=== PATIENT | female | born 2000 | race Caucasian/White ===

== ENCOUNTER 2023-06-05 11:37 | Emergency (ER) | payer BC, SELFPAY ==
[2023-06-05 11:38] VITALS: BP 109/71; PULSE 80; RESP 14; TEMP 36.2; O2SAT 100; BMI 30.9
--- NOTE | 2023-06-05 12:14 | EDS_ITS ---
HPI History of Present Illness Chief Complaint: Bite Narrative Narrative: 22-year-old female with bat exposure this morning. She denies any bites. Her significant other [facility] and they were told that they have a bat exposure and there is concern for rabies. She presents for vaccination. PFSH PFSH Allergy/AdvReac Type Severity Reaction Status Date / Time Sulfa (Sulfonamide Allergy Mild RASH Verified 06/05/23 11:39 Antibiotics) Social History Smoking Status: Never smoker ROS ROS ED Constitutional Constitutional ED: Denies chills, fever(s) or sweats Eyes Eyes: Denies blurry vision or change in vision ENT ENT ED: Denies ear pain or sore throat Cardiovascular Cardiovascular: Denies chest pain, palpitations or racing heartbeat Respiratory/Chest Respiratory/Chest: Denies cough, dyspnea or sputum Gastrointestinal Gastrointestinal: Denies abdominal pain, constipation, diarrhea, nausea or vomiting Genitourinary Genitourinary ED: Denies dysuria, hematuria or urinary frequency Musculoskeletal Musculoskeletal: Denies arthralgias, myalgias or neck pain Integumentary Denies abscess, Abrasions or rash Neurologic Neurologic: Denies headache(s), paresthesias or weakness Psychiatric Psychiatric: Denies anxiety, depression, suicidal ideation or suicidal thoughts Endocrine Endocrinology: Denies polydipsia or polyuria EXAM Physical Exam Const Vital Signs: 06/05/23 11:38 Temperature 97.1 F L Temperature Source Temporal Pulse Rate 80 Respiratory Rate 14 Blood Pressure 109/71 Blood Pressure Mean 83 Pulse Ox 100 Oxygen Delivery Method Room Air Positive well nourished General Appearance ED: NAD HEENT Reports moist mucous membranes Eyes PERRL and EOMs intact bilaterally Resp normal respiratory effort Effort and Inspection: Negative for retractions Cardio regular rate and regular rhythm Neuro oriented x3 and CN's II-XII intact bilaterally Psych mental status grossly normal Skin no rashes or lesions noted and no wounds MDM MDM MDM Narrative Medical decision making narrative: 22-year-old otherwise healthy female with bat exposure. There is concern for rabies. No reported bites or scratches. She is given rabies vaccine and immunoglobulin. She given scheduled for rabies vaccination. Return precautions discussed. Impression: 1. Bat exposure 2. Rabies vaccination Discharge Plan Triage Chief Complaint: Bite ED Provider: Aleksandar Rock Dx/Rx/DC Orders Instructions: Understanding Rabies Disposition Disposition: Home, Self Care
[2023-06-05] MEDS: Rabies Vaccine,Human Diploid 2.5 UNITS Vial IM (13:13)
[2023-06-05] MEDS: Rabies Immune Globulin/PF 300 UNIT/ML, 5 ML VIAL 1500 UNIT IM (13:17)
[2023-06-05] MEDS: Rabies Immune Globulin 150 U/ML 2ml Vial 130 U IM (13:18)
[2023-06-05 13:40] VITALS: BP 113/73; PULSE 80; RESP 16; O2SAT 99
== END 2023-06-05 13:41 | disposition home or self-care (01) ==
LOC: ED 12:22
PROVIDERS: Emergency Provider Student in an Organized Health Care Education/Training Program; Visit Provider Student in an Organized Health Care Education/Training Program
DX: Z20.3 Contact with and (suspected) exposure to rabies (principal); Z23 Encounter for immunization
CPT/HCPCS: 90675; 96372; 99283; 90375

== ENCOUNTER → 2023-10-11 | Outpatient (CLI) | payer BC, SELFPAY ==
--- OUTSIDE RECORDS SUMMARY | 2023-10-11 15:26 | XMS RPT_ITS | CCD ---
Author Name Unknown Address [address] [place] [address] Organization [facility] Care Team Providers [facility] Name Role Phone ADRIENNE BEEBE MD Attending Unavailable PHYSICIAN, PATIENT UNSURE Primary Care Unavai lable Results Test Name Value Interpretation Reference Range Facil ity Encounters Encounter Date Encounter Type Care Provider Facility Start: 05-28-2023 End: 05-29-2023 ambulatory ADRIENNE BEEBE MD Facility:B Payers Date Payer Category Payer Unknown [id number] 2000 Unknown [id number] Summary Purpose Family History No Family History Records Found Advance Directives No Advanced Directives Records Found Additional Source Comments INFORMATION SOURCE (unrecogn ized section and content) FOR RECORDS PERTAINING TO PATIENTS WHO ARE OR HAVE BEEN ENROLLED IN A CHEMICAL DEPENDENCY/SUBSTANCEABUSE PROGRAM, SOME INFORMATION MAY BE OMITTED. This clinical summary was aggregated from multiple sources. Caution should be exercised in using it in the provision of clinical care. This summary normalizes information from multiple sources, and as a consequence, information in this document may materially change the coding, format and clinical context of patient data. In addition, data may be omitted in some cases. CLINICAL DECISIONS SHOULD BE BASED ON THE PRIMARY CLINICAL RECORDS. [email or web address] provides no warranty or guarantee of the accuracy or completeness of information in this document.
[2023-10-11 18:31] LABS: Amphetamine Urine VISTA NEGATIVE (<1000 ng/mL); Barbiturate Urine VISTA NEGATIVE (< 200 ng/mL); Benzodiazepine Urine VISTA NEGATIVE (< 200 ng/mL); Cocaine Urine VISTA NEGATIVE (< 300 ng/mL); Ecstacy Urine VISTA NEGATIVE (< 500 ng/mL); Methadone Urine VISTA NEGATIVE (< 300 ng/mL); PCP Urine VISTA NEGATIVE (< 25 ng/mL); THC Urine VISTA NEGATIVE (< 50 ng/mL); Vista UDS pH Range 6
== END | disposition home or self-care (01) ==
LOC: MTLAB 15:01
PROVIDERS: Referring Provider Internal Medicine Pulmonary Disease; Visit Provider Internal Medicine Pulmonary Disease
DX: G47.10 Hypersomnia, unspecified (principal)
CPT/HCPCS: 80307